=== PATIENT | male | born 1980 | race Caucasian/White ===

== ENCOUNTER 2018-11-24 20:26 | Emergency (ER) | payer SELFPAY ==
--- NOTE | 2018-11-24 23:17 | ED Physician Chart ---
ED Chief Complaint/HPI - Patient Information Date Seen:: 11/24/18 Time Seen:: 23:10 Chief Complaint:: paresthesias History of Present Illness:: Patient feels like something is eating his internal organs. He drank a lot of alcohol tonight. Allergies:: Allergies Allergy/AdvReac Type Severity Reaction Status Date / Time No Known Allergies Allergy Verified 11/24/18 20:50 Vitals:: Vital Signs - 8 hr 11/24/18 20:30 Temp 98.4 F HR 92 RR 17 BP 133/87 O2 Sat % 96 Historian:: Patient Review:: Nurse's Note Reviewed ED Review of Systems - Review of Systems General/Constitutional: No fever, No chills, No weight loss, No weakness, No diaphoresis, No edema, No loss of appetite, Other (paresthesias) Skin: No skin lesions, No rash, No bruising Head: No headache, No light-headedness Eyes: No loss of vision, No pain, No diplopia ENT: No earache, No nasal drainage, No sore throat, No tinnitus Neck: No neck pain, No swelling, No thyromegaly, No stiffness, No mass noted Cardio Vascular: No chest pain, No palpitations, No PND, No orthopnea, No edema Pulmonary: No SOB, No cough, No sputum, No wheezing GI: No nausea, No vomiting, No diarrhea, No pain, No melena, No hematochezia, No constipation, No hematemesis G/U: No dysuria, No frequency, No hematuria Musculoskeletal: No bone or joint pain, No back pain, No muscle pain Endocrine: No polyuria, No polydipsia Psychiatric: No prior psych history, No depression, No anxiety, No suicidal ideation Hematopoietic: No bruising, No lymphadenopathy Allergic/Immuno: No urticaria, No angioedema Neurological: No syncope, No focal symptoms, No weakness, No paresthesia, No headache, No seizure, No dizziness, No confusion, No vertigo ED Past Medical History - Past Medical History Past Medical History: No significant medical hx Family History: None Social History: Smoker, Alcohol Surgical History: None Psychiatricy History: None Family Medical History - Family Member Mother History Unknown: Yes ED Physical Exam - Physical Examination General/Constitutional: Awake, Well-developed, well-nourished, Alert, No distress, GCS 15, Non-toxic appearing, Ambulatory Head: Atraumatic Eyes: Lids, conjuctiva normal, PERRL, EOMI Skin: Nl inspection, No rash, No skin lesions, No ecchymosis, Well hydrated, No lymphadenopathy ENMT: External ears, nose nl, Nasal exam nl, Lips, teeth, gums nl Neck: Nontender, Full ROM w/o pain, No JVD, No nuchal rigidity, No bruit, No mass, No stridor Respiratory: Nl effort/Exclusion, Clear to Auscultation, No Wheeze/Rhonchi/Rales Cardio Vascular: RRR, No murmur, gallop, rubs, NL S1 S2 GI: No tenderness/rebounding/guarding, No organomegaly, No hernia, Normal BS's, Nondistended, No mass/bruits, No McBurney tenderness : No CVA tenderness Extremities: No tenderness or effusion, Full ROM, normal strength in all extremities, No edema, Normal digits & nails Neuro/Psych: Alert/oriented, DTR's symmetric, Normal sensory exam, Normal motor strength, Judgement/insight normal, Mood normal, Normal gait, No focal deficits Misc: Normal back, No paraspinal tenderness ED Labs/Radiology/EKG Results - Lab Results Results: Laboratory Results WBC 6.3 Th/cmm (4.8-10.8) 11/25/18 00:00 RBC 5.55 Mil/cmm (4.30-5.70) 11/25/18 00:00 Hgb 16.3 gm/dL (12-16) 11/25/18 00:00 Hct 48.6 % (41.0-60) 11/25/18 00:00 MCV 87.5 fl (80-99) 11/25/18 00:00 MCH 29.3 pg (26.0-30.0) 11/25/18 00:00 MCHC Differential 33.5 pg (28.0-36.0) 11/25/18 00:00 RDW 13.1 % (11.5-20.0) 11/25/18 00:00 Plt Count 218 Th/cmm (150-400) 11/25/18 00:00 MPV 8.8 fl 11/25/18 00:00 Neutrophils % 58.2 % (40.0-80.0) 11/25/18 00:00 Lymphocytes % 27.6 % (20.0-50.0) 11/25/18 00:00 Monocytes % 9.1 % (2.0-10.0) 11/25/18 00:00 Eosinophils % 4.6 % (0.0-5.0) 11/25/18 00:00 Basophils % 0.5 % (0.0-2.0) 11/25/18 00:00 Sodium 135 mEq/L (136-145) L 11/25/18 23:25 Potassium 3.5 mEq/L (3.5-5.1) 11/25/18 23:25 Chloride 101 mEq/L (98-107) 11/25/18 23:25 Carbon Dioxide 22.0 mEq/L (21.0-31.0) 11/25/18 23:25 Anion Gap 15.5 (7.0-16.0) 11/25/18 23:25 BUN 13 mg/dL (7-25) 11/25/18 23:25 Creatinine 0.6 mg/dL (0.7-1.3) L 11/25/18 23:25 Est GFR ( Amer) > 60.0 ml/min (>90) 11/25/18 23:25 Est GFR (Non-Af Amer) > 60.0 ml/min 11/25/18 23:25 BUN/Creatinine Ratio 21.7 11/25/18 23:25 Glucose 108 mg/dL (70-105) H 11/25/18 23:25 Calcium 9.9 mg/dL (8.6-10.3) 11/25/18 23:25 Magnesium 2.4 mg/dL (1.9-2.7) 11/25/18 23:25 Ethyl Alcohol < 10 mg/dL (0-10) 11/24/18 23:25 ED Assessment - Assessment General Assessment: Patient's blood alcohol was less than 10 and basic blood tests are normal. Patient to be discharged when he ambulates normally and verbalizes normally without slurred speech. ED Septic Shock - . Is Septic Shock (SBP<90, OR Lactate>4 mmol\L) present?: No - <6hrs of presentation: Vital Signs: Vital Signs - 8 hr 11/24/18 20:30 Temp 98.4 F HR 92 RR 17 BP 133/87 O2 Sat % 96 ED Reassessment (Disposition) - Reassessment Reassessment Condition:: Improved - Diagnosis Diagnosis:: Paresthesias; altered mental status - Aftercare/Follow up Instructions Aftercare/Follow-Up Instructions:: Refer to Discharge Instructions - Patient Disposition Discharge/Transfer:: Home Condition at Disposition:: Stable, Improved
[2018-11-25 00:20] LABS: % BASOPHILS 0.5 % (0.0-2.0); % EOSINOPHILS 4.6 % (0.0-5.0); % LYMPHOCYTES 27.6 % (20.0-50.0); % MONOCYTES 9.1 % (2.0-10.0); % NEUTROPHILS 58.2 % (40.0-80.0); EOSINOPHILE ABSOLUTE 0.3 Th/cmm (0.1-0.4); HEMATOCRIT 48.6 % (41.0-60); HEMOGLOBIN 16.3 gm/dL (12-16); LYMPHOCYTE ABSOLUTE 1.7 Th/cmm (1.5-3.0); MEAN CELL VOLUME 87.5 fl (80-99); MEAN CORPUSCULAR HEMOGLOBIN 29.3 pg (26.0-30.0); MEAN CORPUSCULAR HGB CONC 33.5 pg (28.0-36.0); MEAN PLATELET VOLUME 8.8 fl; MONOCYTE ABSOLUTE 0.6 Th/cmm (0.3-1.0); NEUTROPHILE ABSOLUTE 3.7 Th/cmm (1.8-8.0); PLATELET COUNT 218 Th/cmm (150-400); RED BLOOD COUNT 5.55 Mil/cmm (4.30-5.70); RED CELL DISTRIBUTION WIDTH 13.1 % (11.5-20.0); WHITE BLOOD COUNT 6.3 Th/cmm (4.8-10.8)
[2018-11-25 00:29] LABS: ANION GAP 15.5 (7.0-16.0); BUN - UREA NITROGEN 13 mg/dL (7-25); CALCIUM SERUM 9.9 mg/dL (8.6-10.3); CHLORIDE 101 mEq/L (98-107); CREATININE - SERUM 0.6 mg/dL (0.7-1.3); GFR AFRICAN-AMERICAN > 60.0 ml/min (>90); GFR NON AFRICAN-AMERICAN > 60.0 ml/min; GLUCOSE 108 mg/dL (70-105); MAGNESIUM 2.4 mg/dL (1.9-2.7); POTASSIUM SERUM 3.5 mEq/L (3.5-5.1); SODIUM SERUM 135 mEq/L (136-145)
== END 2018-11-25 06:34 | disposition home or self-care (01) ==
LOC: ER 20:26
DX: R20.2 Paresthesia of skin (principal); R41.82 Altered mental status, unspecified; F17.200 Nicotine dependence, unspecified, uncomplicated
CPT/HCPCS: 36415-UA; 80048-TC; 80320-TC; 83735-TC; 85025-TC; Z7502